=== PATIENT | female | born 1945 | race African-American/Black ===

== ENCOUNTER 2016-10-22 07:51 | Emergency (ER) | payer BC ==
[2016-10-22 08:20] LABS: BASOPHILS 0.1 %; BASOPHILS ABSOLUTE 0.01 10/3/uL (0.0-0.16); EOSINOPHILS 0.3 %; EOSINOPHILS ABSOLUTE 0.04 10/3/uL (0.0-0.53); HEMATOCRIT 45.7 % (36.0-48.0); IMMATURE GRANULOCYTES 0.2 %; IMMATURE GRANULOCYTES ABSOLUTE 0.02 10/3/uL (0.0-0.11); LYMPHOCYTES 10.4 %; LYMPHOCYTES ABSOLUTE 1.27 10/3/uL (0.67-4.30); MEAN CORPUSCULAR HEMOGLOB 31.4 pg (26.0-34.0); MEAN PLATELET VOLUME 11.3 fL (9.2-13.0); MONOCYTES 2.5 %; NEUTROPHILS 86.5 %; PLATELET COUNT 262 10/3/uL (150-400); RBC DISTRIBUTION WIDTH 13.7 % (12.0-16.0); RED CELL COUNT 5.09 10/6/uL (4.0-5.6)
[2016-10-22 08:22] LABS: ER CBC TAT 0 Hrs 08 Mins; MANUAL DIFF NO %; MEAN CORPUSCULAR VOLUME 89.8 fL (80-100); WHITE BLOOD CELLS 12.2 10/3/uL (4.5-10.5)
[2016-10-22 08:41] LABS: A/G RATIO 0.8 (0.7-1.9); ALKALINE PHOSPHATASE 87 U/L (45-117); CALCIUM, SERUM 9.5 MG/DL (8.5-10.4); CHLORIDE, SERUM 102 MMOL/L (96-112); CO2 (CARBON DIOXIDE) 27 MMOL/L (24-34); CREATININE 1.84 MG/DL (0.55-1.02); GFR AFRICAN AMERICAN 32 ML/MIN (>=60); GFR NON AFRICAN AMERICAN 27 ML/MIN (>=60); POTASSIUM, SERUM 4.8 MMOL/L (3.5-5.3); SGOT(AST) 18 U/L (5-40); SGPT(ALT) 24 U/L (5-65); SODIUM, SERUM 138 MMOL/L (135-148); TOTAL BILIRUBIN 0.9 MG/DL (0-1.2); TOTAL PROTEIN 8.8 G/DL (6.0-8.5); TROPONIN I <0.02 NG/ML (<0.05)
[2016-10-22 08:44] LABS: BUN (BLOOD UREA NITROGEN) 27 MG/DL (6-23); GLOBULIN 4.8 G/DL (2.5-4.1); GLUCOSE, SERUM 146 MG/DL (60-99)
[2016-10-22 08:50] LABS: ASCORBIC ACID (UR NOT ORDER) NEG (NEG); BILIRUBIN, URINE NEGATIVE (NEG); ER URINALYSIS TAT 0 Hrs 15 Mins; KETONE, URINE NEGATIVE (NEG); LEUKOCYTE ESTERASE(NOT OR SMALL (NEG); NITRITE (URINE) NEG (NEG); WBC (NOT ORDERED) (RFLEX) 5 (0-5)
[2017-01-14] MEDS ORDERED: GLUCPH PO (16:53)
[2017-01-14] MEDS ORDERED: NORV10 PO (16:53)
[2017-01-14] MEDS ORDERED: SPIRO25 PO (16:54)
[2017-01-14] MEDS ORDERED: NORCO1 TAB PO (16:54)
[2017-01-14] MEDS ORDERED: ATEN50 PO (16:54)
[2017-01-14] MEDS ORDERED: VITAMIN D31000 UNIT PO (16:55)
[2017-01-14] MEDS ORDERED: DIOV160 PO (16:55)
[2017-01-14] MEDS ORDERED: XARELTO15 MG PO (16:56)
== END 2016-10-22 15:28 | disposition home or self-care (01) ==
LOC: ER 07:51
PROVIDERS: Nurse Practitioner Acute Care
DX: R10.31 Right lower quadrant pain (principal); R11.2 Nausea with vomiting, unspecified; I12.9 Hypertensive chronic kidney disease with stage 1 through stage 4 chronic kidney disease, or unspecified chronic kidney disease; N18.9 Chronic kidney disease, unspecified; Z88.5 Allergy status to narcotic agent; Z88.8 Allergy status to other drugs, medicaments and biological substances
CPT/HCPCS: 74176; 80053; 81001; 84484; 85025; 87086; 93005; 96374; 96375; 99285; J1170; J2405